=== PATIENT | female | born 1950 | race Caucasian/White ===

== ENCOUNTER 2021-12-07 09:13 | Outpatient (CLI) | payer MEDICARE | END 2021-12-07 09:14 | disposition home or self-care (01) | LOC: CSHRAD 09:13 | PROVIDERS: ATTEND Internal Medicine Cardiovascular Disease | DX: R06.02 Shortness of breath (principal); R06.00 Dyspnea, unspecified | CPT/HCPCS: 71046 ==

== ENCOUNTER 2022-05-17 08:31 | Day surgery (SDC) | payer MEDICARE ==
[2022-05-17] MEDS ORDERED: Iopamidol-M 200 41% 10 ML VIAL FS ONE (09:02)
[2022-05-17 09:59] VITALS: BP 146/69; TEMP 98.1; BMI 36.8
== END 2022-05-17 10:30 | disposition home or self-care (01) ==
LOC: CSHRAD 08:31
PROVIDERS: ATTEND Family Medicine
DX: M96.1 Postlaminectomy syndrome, not elsewhere classified (principal); M54.16 Radiculopathy, lumbar region
CPT/HCPCS: 62304; 72132; Q9966

== ENCOUNTER 2024-11-28 12:01 | Inpatient (IN) | payer MEDICARE ==
[2024-11-28 12:39] LABS: #Basophils 0.03 10x3/uL (0.0-0.2); #Eosinophils 0.23 10x3/uL (0.0-0.5); #Monocytes 0.53 10x3/uL (0.0-1.1); #Neutrophils 3.88 10x3/uL (1.5-8.4); %Basophils 0.5 % (0.0-2.0); %Eosinophils 4.1 % (0.0-6.0); %Lymphocytes 17.0 % (18.0-47.0); %Monocytes 9.4 % (0.0-10.0); %Neutrophils 68.8 % (40.0-75.0); Hematocrit 27.8 % (34.9-44.5); Hemoglobin 9.0 g/dL (12.0-15.5); Mean Corpuscular Hemoglobin 29.1 pg (27.0-33.0); Mean Corpuscular Volume 90.0 fL (81.6-98.3); Platelet Count 199 10x3/uL (150-450); Red Blood Cell (RBC) Count 3.09 10x6/uL (3.90-5.03); White Blood Cell (WBC) Count 5.64 10x3/uL (3.5-10.5)
[2024-11-28] MEDS ORDERED: Ondansetron PF 4 MG/2 ML Vial ONE (12:45)
[2024-11-28] MEDS ORDERED: Dexamethasone 10 MG/ML VIAL ONE (12:45)
[2024-11-28 12:54] LABS: ALT (SGPT) 13 U/L (Less than 34); AST (SGOT) 21 U/L (11-34); Albumin 3.8 g/dL (3.1-4.5); Alkaline Phosphatase 64 U/L (40-110); Anion Gap 11 mmol/L (10-20); BUN (Urea Nitrogen) 49 mg/dL (9.8-20.1); Bilirubin, Total 0.6 mg/dL (0.3-1.2); Calc. Creatinine Clearance 0 mL/min (70-130); Calcium 8.9 mg/dL (7.8-10.44); Carbon Dioxide 26 mmol/L (23-31); Chloride 105 mmol/L (98-107); Globulin 3.1 g/dL (2.4-3.5); Glucose 95 mg/dL (83-110); Potassium 4.2 mmol/L (3.5-5.1); Sodium 138 mmol/L (136-145)
[2024-11-28 13:00] LABS: Troponin I Less than 0.010 ng/mL (< 0.028)
[2024-11-28] MEDS ORDERED: Acetaminophen 325 MG TAB PO PRN (21:49)
[2024-11-28] MEDS ORDERED: Ketorolac Tromethamine 30 MG (1 mL) VIAL IVP PRN (22:27)
[2024-11-28] MEDS ORDERED: Ondansetron PF 4 MG/2 ML Vial IVP PRN (22:27)
[2024-11-28] MEDS ORDERED: Senokot S 8.6-50 MG TAB PO PRN (22:27)
[2024-11-28] MEDS ORDERED: Guaifenesin DM 100-10/5 ML UDCUP PO PRN (22:27)
[2024-11-28] MEDS ORDERED: Calcium Carbonate 500 MG ChewTAB PO PRN (22:27)
[2024-11-29] MEDS ORDERED: Furosemide 20 MG TAB PO PRN (01:13)
[2024-11-29 04:12] LABS: Glucose, Urine (Dipstick) Normal (Negative); Leukocyte Negative (Negative); Protein, Urine (Dipstick) 15 mg/dl (Neg-Trace); Specific Gravity, Urine 1.020 (1.005-1.030)
[2024-11-29 04:14] LABS: Bacteria/HPF None Seen HPF (None Seen); RBC/HPF 0-3 HPF (0-3); WBC/HPF None Seen HPF (0-3)
[2024-11-29 04:55] LABS: #Basophils Less than 0.03 10x3/uL (0.0-0.2); #Eosinophils Less than 0.03 10x3/uL (0.0-0.5); #Monocytes 0.27 10x3/uL (0.0-1.1); #Neutrophils 4.03 10x3/uL (1.5-8.4); %Basophils 0.0 % (0.0-2.0); %Eosinophils 0.0 % (0.0-6.0); %Lymphocytes 11.8 % (18.0-47.0); %Monocytes 5.5 % (0.0-10.0); %Neutrophils 82.3 % (40.0-75.0); Hematocrit 25.9 % (34.9-44.5); Hemoglobin 8.4 g/dL (12.0-15.5); Mean Corpuscular Hemoglobin 28.6 pg (27.0-33.0); Mean Corpuscular Volume 88.1 fL (81.6-98.3); Platelet Count 219 10x3/uL (150-450); Red Blood Cell (RBC) Count 2.94 10x6/uL (3.90-5.03); White Blood Cell (WBC) Count 4.90 10x3/uL (3.5-10.5)
[2024-11-29 05:08] LABS: Anion Gap 11 mmol/L (10-20); BUN (Urea Nitrogen) 35 mg/dL (9.8-20.1); CK (CPK) 224 U/L (29-168); Calc. Creatinine Clearance 0 mL/min (70-130); Calcium 8.8 mg/dL (7.8-10.44); Carbon Dioxide 24 mmol/L (23-31); Chloride 109 mmol/L (98-107); Glucose 117 mg/dL (83-110); Potassium 4.4 mmol/L (3.5-5.1); Sodium 140 mmol/L (136-145)
[2024-11-29] MEDS: Ferrous Gluconate 324 MG TAB PO SCH (08:40)
[2024-11-29] MEDS: Multivit, Therapeutic 1 TAB PO SCH (08:40)
[2024-11-29] MEDS: Pantoprazole 40 MG DR.TAB PO SCH (08:41)
[2024-11-29] MEDS ORDERED: [UNRECOGNIZED DRUG - REMARK] TOP SCH (10:00)
[2024-11-29] MEDS ORDERED: HYDROcodone/Acetaminophen 7.5/325 mg Tablet PO PRN (11:21)
[2024-11-29] MEDS: HYDROcodone/Acetaminophen 10/325 mg Tablet PO PRN (11:58)
[2024-11-29] MEDS ORDERED: BIOTIN PO SCH (21:00)
[2024-11-29] MEDS ORDERED: VITAMIN C PO SCH (21:00)
[2024-11-29] MEDS ORDERED: [UNRECOGNIZED DRUG - OTHER] PO SCH (21:00)
[2024-11-29] MEDS: Aspirin 81 mg Enteric Coated Tablet PO SCH (22:02)
[2024-11-29] MEDS: Metoprolol Succinate XL 25 MG ER.TAB PO SCH (22:04)
[2024-11-30 06:41] VITALS: BP 142/63; TEMP 98.4
[2024-11-30] MEDS ORDERED: Senokot S 8.6-50 MG TAB PO SCH (09:00)
== END 2024-11-30 07:00 | disposition left against medical advice (07) | DRG 184 ==
LOC: CSHERS 12:01 → CSHTELE 15:00 → OBSVTOIN 22:27
PROVIDERS: ADMIT Family Medicine; ATTEND Family Medicine
DX: S22.41XA Multiple fractures of ribs, right side, initial encounter for closed fracture (principal); N17.9 Acute kidney failure, unspecified; S52.021A Displaced fracture of olecranon process without intraarticular extension of right ulna, initial encounter for closed fracture; I10 Essential (primary) hypertension; I48.0 Paroxysmal atrial fibrillation; W19.XXXA Unspecified fall, initial encounter; Z53.29 Procedure and treatment not carried out because of patient's decision for other reasons; E78.5 Hyperlipidemia, unspecified; D64.9 Anemia, unspecified; G25.81 Restless legs syndrome; Z79.899 Other long term (current) drug therapy; Z79.82 Long term (current) use of aspirin; Z88.8 Allergy status to other drugs, medicaments and biological substances; Z90.49 Acquired absence of other specified parts of digestive tract; Z98.890 Other specified postprocedural states; Z90.710 Acquired absence of both cervix and uterus; Z98.51 Tubal ligation status; Z88.2 Allergy status to sulfonamides
CPT/HCPCS: 36415; 71250; 80048; 80053; 81001; 82550; 84484; 85025; 93005; 93010; 93970; 96374; 96375; J1100; J2270; J2405; J7120